=== PATIENT | male | born 1950 | race Caucasian/White ===

== ENCOUNTER → 2017-10-12 15:30 | Outpatient (CLI) | payer MEDICARE, OTHER, SELFPAY ==
--- NOTE | 2017-10-12 15:49 | MASS_PTH ---
PATIENT: TIFFANIE MOJICA LOC: [facility] U#:[id number] AGE/SX: 74/M ROOM: RE10/12/[address]: Dr. 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 JUANITA:paloma 10/17/17 MICROSCOPIC DESCRIPTION Slides are reviewed. GROSS DESCRIPTION Received is one container labeled with the patient's name and not further designated. The specimen consists of an irregular willis nodule measuring 3.5 x 2.5 x 2 cm. The specimen consists of a cyst filled with willis-white cheesy material. Prepress Operator sections are submitted in one cassette. / SJ:rg 10/16/17 TC:5 CPT: 15756
== END ==
PROVIDERS: Visit Provider Orthopaedic Surgery
DX: R22.32 Localized swelling, mass and lump, left upper limb (principal)
CPT/HCPCS: 88304; 88305